=== PATIENT | female | born 1995 | race Caucasian/White ===

== ENCOUNTER 2018-06-16 11:39 | Emergency (ER) | payer OTHER, SELFPAY ==
[2018-06-16 11:51] VITALS: BP 129/74; PULSE 87; RESP 20; TEMP 37.5; O2SAT 100; BMI 19.1
--- NOTE | 2018-06-16 12:10 | ED.ABDPAIN ---
HPI - Abdominal Pain General Chief Complaint: Abdominal Pain Stated Complaint: PELVIC PAIN Time Seen by Provider: 06/16/18 12:10 Source: patient Mode of arrival: ambulatory Limitations: no limitations History of Present Illness HPI narrative: Otherwise healthy 22-year-old female here for evaluation of right upper quadrant abdominal pain and also lower abdominal pain. Patient states that it has been off and on for the past month and a half. She has seen a provider the walk-in clinic and she reports that she has had an ultrasound of her pelvis and also her ovaries which were reported as normal. She states the pain is off and on. Does not seem to related to her menstrual cycle. She states she is happy with her menstrual cycle right now. Is not on control because she and her are trying to get . She does have concern for endometriosis. No prior abdominal surgeries. No dysuria. No change of bowel habits. Has not tried anything for this prior to arrival. Related Data Allergies Allergy/AdvReac Type Severity Reaction Status Date / Time Penicillins Allergy Verified 06/16/18 12:35 Review of Systems Constitutional Denies chills, Denies fever(s) and Denies headache(s) ENT Ears, Nose, Mouth, and Throat: Denies dizziness and Denies headache(s) Cardiovascular Denies chest pain, Denies syncope and Denies dyspnea Respiratory Denies dyspnea Gastrointestinal Gastrointestinal: Reports abdominal pain, Denies change in stool character, Denies constipation, Denies diarrhea, Denies nausea and Denies vomiting Genitourinary Denies dysuria and Denies flank pain Musculoskeletal Denies myalgias and Denies arthralgias Integumentary/Breasts Denies lesions and Denies rash Neurologic Denies dizziness, Denies syncope and Denies headache(s) Hematologic/Lymphatic Denies easy bleeding and Denies easy bruising [facility] Medical History Healthy adult (Acute) Surgical History No history of previous surgery (Acute) Social History Smoking Status: Never smoker Exam Initial Vital Signs Initial Vital Signs: Vital Signs Temperature 99.5 F 06/16/18 11:51 Pulse Rate 87 06/16/18 11:51 Respiratory Rate 20 06/16/18 11:51 Blood Pressure 129/74 H 06/16/18 11:51 Pulse Oximetry 100 06/16/18 11:51 Const General: cooperative, healthy appearing, comfortable, well developed, well groomed and No acute distress Orientation: alert, awake and oriented x3 HENMT Head: normal to inspection and normocephalic Resp Effort & Inspection: normal respiratory effort Auscultation: clear to auscultation bilaterally Cardio Rate: regular rate Rhythm: regular rhythm GI Inspection: non-distended Palpation: soft, No firm, No guarding and tender (Right upper quadrant) Back/Spine/Pelvis Back: No CVA tenderness Skin Lesions: lesions noted Rashes: rash noted Neuro General: alert, awake and oriented x3 Cognition: normal cognition Speech: speech normal Gait: normal gait Motor: muscle tone normal throughout Extrem General: normal to inspection and capillary refill normal Psych Appearance: grossly normal and well kempt Course Orders Ordered: ED Orders 06/16/18 12:30 US abdomen complete Stat 06/16/18 12:53 Complete Blood Count AUTO DIFF Stat Comprehensive Metabolic Panel Stat Lipase Stat Vital Signs - 8 hr 06/16/18 11:51 06/16/18 13:58 Temperature 99.5 F Pulse Rate 87 82 Respiratory Rate 20 14 Blood Pressure 129/74 H Blood Pressure [Left Arm] 105/66 Pulse Oximetry 100 100 MDM - Abdominal Pain Lab Data Attestation: I reviewed the patient's lab results. Result diagrams: 06/16/18 12:53 06/16/18 12:53 Lab Results 06/16/18 06/16/18 Range/Units 12:53 12:53 WBC 9.2 (4.5-11.0) X10^3/uL RBC 3.98 L (4.0-5.2) X10^6/uL Hgb 12.4 (12.0-16.0) g/dL Hct 36.5 (36-46) % MCV 91.9 (80-100) fL MCH 31.1 (26-34) PG MCHC 33.9 (30-36) % RDW 12.6 (11.6-14.8) % Plt Count 340 (150-400) X10^3/uL Neut % (Auto) 78.8 H (50-75) % Lymph % (Auto) 16.1 L (25-40) % [place] % (Auto) 4.7 (3-14) % Eos % (Auto) 0.1 L (2-4) % Baso % (Auto) 0.3 (0-2) % Neut # (Auto) 7200 H (7305-3231) /uL Sodium 141 (137-145) mmol/L Potassium 3.7 (3.4-5.1) mmol/L Chloride 102 (98-107) mmol/L Carbon Dioxide 24 (22-32) mmol/L BUN 8 (7-17) mg/dL Creatinine 0.60 (0.52-1.04) mg/dL Estimated GFR > 60.0 (>60) mL/min BUN/Creatinine Ratio 13.3 (6-22) Glucose 98 (70-100) mg/dL Calcium 9.6 (8.4-10.2) mg/dL Total Bilirubin 1.9 H (0.2-1.3) mg/dL AST 22 (14-36) IU/L ALT 22 (9-52) IU/L Alkaline Phosphatase 38 (38-126) U/L Total Protein 7.9 (6.3-8.2) g/dL Albumin 4.8 (3.5-5.0) g/dL Globulin 3.1 (1.7-4.1) g/dL Albumin/Globulin Ratio 1.5 (1.0-2.8) Lipase 51 (23-300) U/L Point of care testing: Point of Care Testing Test Results Negative Urine Dip Bedside Urine Glucose Negative Bedside Urine Bilirubin - Negative Bedside Urine Ketone +/- 5 Urine Specific Old[place] 1.015 Bedside Urine Occult Blood - Negative Bedside Urine pH 7 Bedside Urine Protein - Negative Bedside Urine Urobilinogen - Negative Bedside Urine Nitrite - Negative Bedside Urine Leukocytes - Negative Esterase Imaging Data US - abdomen: Radiologist's impression: [address] [address] Ultrasound Report Signed Patient: KAYLIN FAUSTIN EMR#: [id number] : 1995Acct:[id number] Age/Sex: 22 / FDate of Service: 06/16/18 Loc: ED Accession Number: [id number] Procedure: US abdomen complete Ordering Provider: Luis Alberto Mcnair D.O. PROCEDURE: US ABDOMEN COMPLETE INDICATIONS: RIGHT UPPER QUADRANT PAIN TECHNIQUE: Real-time scanning was performed of the abdominal and retroperitoneal organs, with image documentation. COMPARISON: None. FINDINGS: Liver: Liver is normal in size and homogeneous in echotexture. Gallbladder: The gallbladder is normal in size without gallbladder wall thickening, pericholecystic fluid, or cholelithiasis. Biliary ducts: Intrahepatic bile ducts are non-dilated. Extrahepatic bile duct caliber measures 3 mm. Normal is 6-7 mm or less in diameter, or 10 mm or less post-cholecystectomy. Pancreas: Visualized portions of the pancreas are sonographically normal. Spleen: Spleen is normal in size and homogeneous in echotexture. Kidneys: Kidneys are normal in size and echotexture. Right kidney measures 10.8 cm long; left kidney measures 10.8 cm long. No hydronephrosis or shadowing nephrolithiasis. No solid masses. Aorta: Visualized aorta is normal in caliber at less than 3 cm. Iliacs: Proximal common iliac arteries are normal in caliber at less than 2.5 cm. IVC: Intrahepatic inferior vena cava is patent. Miscellaneous: No free abdominal fluid. IMPRESSION: 1. Unremarkable abdominal ultrasound. No acute findings are evident. 2. No cholelithiasis. 3. No hydronephrosis. Dictated by: Silverio Greer M.D. on 06/16/2018 at 12:22 Approved by: Silverio Greer M.D. on 06/16/2018 at 12:23 MDM Narrative Medical decision making narrative: Patient with a benign abdominal exam. Labs here unremarkable. No signs of gallbladder pathology. Urine unremarkable. test unremarkable. Has had off and on pain for the past 7 weeks. I feel that this is unlikely appendicitis, small-bowel obstruction or other intra-abdominal surgical pathology. Patient does have a follow-up with a urologist later today and also a laundry assistant provider in the next couple days to evaluate this pain that she has been having. She was instructed to keep these appointments. No indication for antibiotics. Will hold on further workup for now. Patient was given return precautions. She expressed understanding and agreement with plan Discharge Plan Departure Patient Disposition: Home Clinical Impression: Abdominal pain Discharge Date/Time: 06/16/18 14:14 Interventions: ED Discharge Assessment Last Done: 06/16/18 14:13 Instructions: DI for Abdominal Pain-Adult Activity Restrictions/Additional Instructions: Recommend that you keep all of your scheduled medical appointments to continue the workup of this pain that you have been having. Year gallbladder was unremarkable today. No surgical issue was found. Return to the emergency department for any new or worsening symptoms
--- NOTE | 2018-06-16 12:30 | DI.US.S_ITS ---
PROCEDURE: US ABDOMEN COMPLETE INDICATIONS: RIGHT UPPER QUADRANT PAIN TECHNIQUE: Real-time scanning was performed of the abdominal and retroperitoneal organs, with image documentation. COMPARISON: None. FINDINGS: Liver: Liver is normal in size and homogeneous in echotexture. Gallbladder: The gallbladder is normal in size without gallbladder wall thickening, pericholecystic fluid, or cholelithiasis. Biliary ducts: Intrahepatic bile ducts are non-dilated. Extrahepatic bile duct caliber measures 3 mm. Normal is 6-7 mm or less in diameter, or 10 mm or less post-cholecystectomy. Pancreas: Visualized portions of the pancreas are sonographically normal. Spleen: Spleen is normal in size and homogeneous in echotexture. Kidneys: Kidneys are normal in size and echotexture. Right kidney measures 10.8 cm long; left kidney measures 10.8 cm long. No hydronephrosis or shadowing nephrolithiasis. No solid masses. Aorta: Visualized aorta is normal in caliber at less than 3 cm. Iliacs: Proximal common iliac arteries are normal in caliber at less than 2.5 cm. IVC: Intrahepatic inferior vena cava is patent. Miscellaneous: No free abdominal fluid. IMPRESSION: 1. Unremarkable abdominal ultrasound. No acute findings are evident. 2. No cholelithiasis. 3. No hydronephrosis. Dictated by: Silverio Greer M.D. on 06/16/2018 at 12:22 Approved by: Silverio Greer M.D. on 06/16/2018 at 12:23
[2018-06-16 13:04] LABS: Add Manual Diff / Slide Review NO; Basophils Percent Auto 0.3 % (0-2); Eosinophils Percent Auto 0.1 % (2-4); Hematocrit 36.5 % (36-46); Hemoglobin 12.4 g/dL (12.0-16.0); Lymphocytes Percent Auto 16.1 % (25-40); Mean Corpuscular HGB Conc 33.9 % (30-36); Mean Corpuscular Hemoglobin 31.1 PG (26-34); Mean Corpuscular Volume 91.9 fL (80-100); Monocytes Percent Auto 4.7 % (3-14); Neutrophils Absolute Auto 7200 /uL (3000-5900); Neutrophils Percent Auto 78.8 % (50-75); Platelet Count 340 X10^3/uL (150-400); Red Blood Cell Count 3.98 X10^6/uL (4.0-5.2); Red Cell Distribution Width 12.6 % (11.6-14.8); White Blood Cell Count 9.2 X10^3/uL (4.5-11.0)
[2018-06-16 13:15] LABS: Alanine Aminotransferase 22 IU/L (9-52); Albumin 4.8 g/dL (3.5-5.0); Albumin Globulin Ratio 1.5 (1.0-2.8); Alkaline Phosphatase 38 U/L (38-126); Aspartate Aminotransferase 22 IU/L (14-36); BUN Creatinine Ratio 13.3 (6-22); Bilirubin Total 1.9 mg/dL (0.2-1.3); Blood Urea Nitrogen 8 mg/dL (7-17); Calcium 9.6 mg/dL (8.4-10.2); Carbon Dioxide 24 mmol/L (22-32); Chloride 102 mmol/L (98-107); Estimated Glomerular Filt Rate > 60.0 mL/min (>60); Globulin 3.1 g/dL (1.7-4.1); Glucose 98 mg/dL (70-100); HEMOLYSIS < 15 (0-50); Lipase 51 U/L (23-300); Potassium 3.7 mmol/L (3.4-5.1); Sodium 141 mmol/L (137-145); Total Protein 7.9 g/dL (6.3-8.2)
[2018-06-16 13:58] VITALS: BP 105/66; PULSE 82; RESP 14; O2SAT 100
== END 2018-06-16 14:14 | disposition home or self-care (01) ==
PROVIDERS: Emergency Provider Emergency Medicine
DX: R10.9 Unspecified abdominal pain (principal)
CPT/HCPCS: 36415; 76700; 80053; 81003; 81025; 83690; 85025; 99282; 99284

== ENCOUNTER → 2019-01-19 14:34 | Outpatient (CLI) | payer OTHER, SELFPAY ==
[2019-01-19 14:59] LABS: Influenza A and B by PCR Rapid Negative (Negative)
== END ==
PROVIDERS: Visit Provider Physician Assistant
DX: R68.89 Other general symptoms and signs (principal)
CPT/HCPCS: 87400

== ENCOUNTER → 2019-03-29 09:00 | Outpatient (CLI) | payer OTHER, SELFPAY ==
--- NOTE | 2019-03-29 09:01 | DI.US.S_ITS ---
PROCEDURE: US OB <= 14 WEEKS FETUS INDICATIONS: DATING AND VIABILITY OUTSIDE/PRIOR DATING DATA: Last menstrual period (LMP): 02/05/19. LMP-based estimated date of delivery (ASHWINI): 11/12/19. First dating scan (date and location): 03/29/19. Estimated date of delivery (ASHWINI) from first dating scan: 11/13/18. TECHNIQUE: Real-time scanning was performed of the fetus and maternal pelvic organs, with image documentation. Endovaginal scanning was also performed to better visualize the fetus and maternal ovaries. COMPARISON: None. FINDINGS: Embryo: Abanda-rump length measures 1.1 cm corresponding to 7 weeks 2 days. Embryonic heart rate measured at 155 beats per minute. Measurement variability in dating: +/- 4 weeks by LMP, +/- 7 days by mean sac diameter (use before 6 weeks gestation if crown-rump length not able to be measured), +/- 5 days by crown-rump length (up to 8 weeks 6 days gestation), +/- 7 days by crown-rump length (up to 13 weeks 6 days gestation). Maternal organs: Ovaries within normal limits, with right corpus luteal cyst. Limited images through the kidneys demonstrate no hydronephrosis. IMPRESSION: Suddenly today single living IUP. Dictated by: Kenneth MARTINEZ Interpreted: India Mccormick MD on 03/29/2019 at 9:55 Approved by: India Mccormick M.D. on 03/29/2019 at 14:52
== END ==
PROVIDERS: Visit Provider Obstetrics & Gynecology
DX: Z34.91 Encounter for supervision of normal pregnancy, unspecified, first trimester (principal); Z3A.01 Less than 8 weeks gestation of pregnancy
CPT/HCPCS: 76801

== ENCOUNTER → 2019-04-26 15:21 | Outpatient (CLI) | payer OTHER, SELFPAY ==
[2019-04-26 16:35] LABS: Add Manual Diff / Slide Review NO; Basophils Absolute Auto 100 /uL (0-100); Basophils Percent Auto 0.4 % (0-2); Eosinophils Absolute Auto 100 /uL (0-450); Eosinophils Percent Auto 0.4 % (2-4); Hematocrit 35.8 % (36-46); Hemoglobin 11.9 g/dL (12.0-16.0); Lymphocytes Absolute Auto 1700 /uL (1100-4500); Lymphocytes Percent Auto 12.7 % (25-40); Mean Corpuscular HGB Conc 33.3 % (30-36); Mean Corpuscular Hemoglobin 31.2 PG (26-34); Monocytes Absolute Auto 700 /uL (0-900); Monocytes Percent Auto 5.1 % (3-14); Neutrophils Absolute Auto 10800 /uL (1500-7000); Neutrophils Percent Auto 81.4 % (50-75); Platelet Count 373 X10^3/uL (150-400); Red Blood Cell Count 3.81 X10^6/uL (4.0-5.2); Red Cell Distribution Width 12.6 % (11.6-14.8); White Blood Cell Count 13.2 X10^3/uL (4.5-11.0)
[2019-04-26 17:59] LABS: Hepatitis B Surface Antigen NEGATIVE s/c (NEGATIVE); Rubella Antibody IgG 72.9 IU/mL (>15)
[2019-04-26 18:16] LABS: HIV 1 and 2 Antibody NEGATIVE (NEGATIVE); Hep C Virus Ab w/Reflex Quant NEGATIVE s/c (NEGATIVE)
[2019-04-26 18:21] LABS: Appearance Urine UA CLEAR; Bilirubin Urine UA NEGATIVE (NEGATIVE); Color Urine UA YELLOW; Glucose Urine UA NEGATIVE (Negative); Ketones Urine UA NEGATIVE (NEGATIVE); Leukocyte Esterase Urine UA NEGATIVE (NEGATIVE); Nitrite Urine UA NEGATIVE (Negative); Occult Blood Urine UA NEGATIVE (Negative); Protein Urine UA NEGATIVE (Negative); Specific Gravity Urine UA 1.015 (1.000-1.035); Urobilinogen Urine UA 0.2 E.U./dL (0.2)
[2019-05-01 06:41] LABS: RPR Screen Nonreactive (Nonreactive)
== END ==
PROVIDERS: Visit Provider Obstetrics & Gynecology
DX: Z34.91 Encounter for supervision of normal pregnancy, unspecified, first trimester (principal)
CPT/HCPCS: 36415; 80055; 81003; 86703; 86787; 86803; 86850; 86900; 86901; 87086

== ENCOUNTER → 2019-07-05 08:58 | Outpatient (CLI) | payer OTHER, SELFPAY ==
--- NOTE | 2019-07-05 09:00 | DI.US.S_ITS ---
PROCEDURE: US OB >= 14 WEEKS FETUS INDICATIONS: ANATOMY OUTSIDE/PRIOR DATING DATA: Last menstrual period (LMP): 02/05/19. LMP-based estimated date of delivery (ASHWINI): 11/12/19. First dating scan (date and location): 03/29/19. Estimated date of delivery (ASHWINI) from first dating scan: 11/13/18. TECHNIQUE: Real-time scanning was performed of the fetus, with image documentation and biometric measurements. Endovaginal scanning: Not performed COMPARISON: None. FINDINGS: General: A single living intrauterine gestation is present. Presentation: Vertex. Placenta: Placental position is posterior, without previa. Amniotic fluid index: 14.5 cm cm, normal range is 5-24 cm. largest vertical fluid pocket measures 4.4 cm heart rate: 143 beats per minute. Maternal cervical canal: 3.3 cm long. Normal lower limit is 2.5 cm. biometrics: Biparietal diameter: 5.2 cm, correlating with 21 weeks and 5 days Head circumference: 19.2 cm, correlating with 21 weeks and 3 days Abdominal circumference: 16.6 cm, correlating with 21 weeks and 5 days Femur length: 3.6 cm, correlating with 21 weeks and 3 days Composite gestational age from present scan: 21 weeks and 4 days Estimated weight and percentile: 431 g which correlates with the 52nd percentile Measurement variability for biometric dating: +/- 7 days from 14 weeks to 15 weeks 6 days gestation, +/- 10 days from 16 weeks to 21 weeks 6 days gestation, +/- 2 weeks from 22 weeks to 27 weeks 6 days gestation, +/- 3 weeks for 28 weeks gestation or later. weight reference: 4500 g or EFW >90/95% is considered macrosomia or large for gestational age. EFW <10% is small for gestational age. EFW 5% or less is considered intra-uterine growth restriction. Anatomic survey: Neuro: Ventricles are non-dilated at less than 10 mm. Cisterna magna is normal at 3-11 mm. Cerebellum is normal in size and morphology. Nuchal skin fold: Normal at less than 6 mm between 14-21 weeks gestational age. Face: Limited visualization of the nose and lips, facial profile secondary to lie throughout the duration of the study. The imaged portions, they appear unremarkable. Spine: No evidence for spina bifida. Heart: 4-chambered heart is present, with normal ventricular outflow tracts. Diaphragm: Diaphragm is intact. Stomach: Left-sided stomach is present. Kidneys: No hydronephrosis. Normal is less than 5 mm in 2nd trimester, less than 7 mm in 3rd trimester. Cord: 3-vessel cord has orthotopic insertion. Bladder: Normal in size. Extremities: All 4 extremities identified. IMPRESSION: 1. Single living intrauterine gestation with an estimated sonographic gestational age of approximately 21 weeks and 4 days versus 21 weeks and 2 days by last menstrual period. Gestational age remains concordant. Expected interval growth has occurred. Estimated weight of 431 g which placed the fetus within the 52nd percentile. 2. Limited visualization of the face secondary to presentation throughout the duration of the examination. Of the imaged portions, they appear unremarkable. Otherwise, unremarkable second trimester anatomic survey survey. Dictated by: Flash Guerrero M.D. on 07/05/2019 at 18:16 Approved by: Flash Guerrero M.D. on 07/05/2019 at 18:23
== END ==
PROVIDERS: Visit Provider Obstetrics & Gynecology
DX: Z34.02 Encounter for supervision of normal first pregnancy, second trimester (principal); Z3A.21 21 weeks gestation of pregnancy
CPT/HCPCS: 76811

== ENCOUNTER → 2019-07-26 12:54 | Outpatient (CLI) | payer OTHER, SELFPAY ==
[2019-07-26 13:14] LABS: Appearance Urine UA CLOUDY; Bilirubin Urine UA NEGATIVE (NEGATIVE); Color Urine UA YELLOW; Glucose Urine UA NEGATIVE (Negative); Ketones Urine UA NEGATIVE (NEGATIVE); Leukocyte Esterase Urine UA NEGATIVE (NEGATIVE); Nitrite Urine UA NEGATIVE (Negative); Occult Blood Urine UA 2+ (Negative); Protein Urine UA NEGATIVE (Negative); Urobilinogen Urine UA 0.2 E.U./dL (0.2)
[2019-07-26 13:23] LABS: pH Urine UA 7.5 (4.5-8.0)
[2019-07-26 13:28] LABS: Amorphous Sediment Urine 1+; Bacteria Urine Moderate (10-30); Culture Indicated Urine Specimen Cultured; RBC Urine 5-10/HPF (0-5/HPF); Squamous Epithelial Cell Urine 0-1 /HPF (0-5/HPF); WBC Urine 1-5/HPF (0-5/HPF)
== END ==
PROVIDERS: Visit Provider Obstetrics & Gynecology
DX: R31.9 Hematuria, unspecified (principal); Z3A.24 24 weeks gestation of pregnancy
CPT/HCPCS: 81001; 87086

== ENCOUNTER → 2019-08-10 12:19 | Outpatient (CLI) | payer OTHER, SELFPAY ==
[2019-08-10 14:37] LABS: Hemoglobin 9.6 g/dL (12.0-16.0)
[2019-08-10 15:52] LABS: GTT (PREG) 1 Hour PP 50gm Dose 110 mg/dL (76-139)
== END ==
PROVIDERS: Visit Provider Obstetrics & Gynecology
DX: Z34.82 Encounter for supervision of other normal pregnancy, second trimester (principal); Z3A.26 26 weeks gestation of pregnancy
CPT/HCPCS: 36415; 82950; 85014; 85018

== ENCOUNTER → 2019-08-20 12:02 | Outpatient (CLI) | payer OTHER, SELFPAY ==
[2019-08-20 12:08] LABS: RBC Urine None Seen (0-5/HPF)
[2019-08-20 12:18] LABS: Appearance Urine UA CLEAR; Bilirubin Urine UA NEGATIVE (NEGATIVE); Color Urine UA YELLOW; Glucose Urine UA NEGATIVE (Negative); Ketones Urine UA NEGATIVE (NEGATIVE); Leukocyte Esterase Urine UA NEGATIVE (NEGATIVE); Nitrite Urine UA NEGATIVE (Negative); Occult Blood Urine UA NEGATIVE (Negative); Protein Urine UA NEGATIVE (Negative); Specific Gravity Urine UA <=1.005 (1.000-1.035); Urobilinogen Urine UA 0.2 E.U./dL (0.2)
[2019-08-20 12:23] LABS: Bacteria Urine Few (2-10); Culture Indicated Urine Specimen Cultured; Squamous Epithelial Cell Urine 0-1 /HPF (0-5/HPF); WBC Urine 1-5/HPF (0-5/HPF)
== END ==
PROVIDERS: Family Provider Obstetrics & Gynecology; PCP Family Medicine; Visit Provider Obstetrics & Gynecology
DX: O23.43 Unspecified infection of urinary tract in pregnancy, third trimester (principal)
CPT/HCPCS: 81001; 87086

== ENCOUNTER → 2019-10-04 08:44 | Outpatient (CLI) | payer OTHER, SELFPAY ==
[2019-10-05 10:40] LABS: Strep Grp B PCR NEG for Grp B Strep
== END ==
PROVIDERS: Family Provider Obstetrics & Gynecology; PCP Family Medicine; Visit Provider Obstetrics & Gynecology
DX: Z34.03 Encounter for supervision of normal first pregnancy, third trimester (principal)
CPT/HCPCS: 87653

== ENCOUNTER → 2020-12-10 08:32 | Outpatient (CLI) | payer OTHER, SELFPAY ==
[2020-12-10 08:57] LABS: Add Manual Diff / Slide Review NO; Appearance Urine UA CLEAR; Basophils Absolute Auto 100 /uL (0-100); Basophils Percent Auto 0.6 % (0-2); Bilirubin Urine UA NEGATIVE (NEGATIVE); Color Urine UA YELLOW; Eosinophils Absolute Auto 0 /uL (0-450); Eosinophils Percent Auto 0.3 % (2-4); Glucose Urine UA NEGATIVE (Negative); Hematocrit 35.7 % (36-46); Ketones Urine UA NEGATIVE (NEGATIVE); Leukocyte Esterase Urine UA NEGATIVE (NEGATIVE); Lymphocytes Absolute Auto 1400 /uL (1100-4500); Lymphocytes Percent Auto 14.6 % (25-40); Mean Corpuscular HGB Conc 33.6 % (30-36); Mean Corpuscular Volume 92.3 fL (80-100); Monocytes Absolute Auto 500 /uL (0-900); Neutrophils Absolute Auto 7400 /uL (1500-7000); Neutrophils Percent Auto 79.5 % (50-75); Nitrite Urine UA NEGATIVE (Negative); Occult Blood Urine UA NEGATIVE (Negative); Platelet Count 358 X10^3/uL (150-400); Protein Urine UA NEGATIVE (Negative); Red Blood Cell Count 3.87 X10^6/uL (4.0-5.2); Red Cell Distribution Width 12.4 % (11.6-14.8); Urobilinogen Urine UA 0.2 E.U./dL (0.2); White Blood Cell Count 9.3 X10^3/uL (4.5-11.0)
[2020-12-10 10:08] LABS: Hepatitis B Surface Antigen NEGATIVE s/c (NEGATIVE); Rubella Antibody IgG 33.7 IU/mL (>15)
[2020-12-10 10:28] LABS: HIV 1 & 2 Ab/Ag 4th Gen Combo NEGATIVE (NEGATIVE); Hep C Virus Ab w/Reflex Quant NEGATIVE s/c (NEGATIVE)
[2020-12-11 08:09] LABS: RPR Screen Non Reactive (Non Reactive)
[2020-12-11 08:44] LABS: Varicella IgG Antibody 425 index (Immune >165)
== END ==
PROVIDERS: Family Provider Obstetrics & Gynecology; PCP Family Medicine; Referring Provider Obstetrics & Gynecology; Visit Provider Obstetrics & Gynecology
DX: Z34.81 Encounter for supervision of other normal pregnancy, first trimester (principal)
CPT/HCPCS: 36415; 80055; 81003; 86787; 86803; 86850; 86900; 86901; 87077; 87086; 87147; 87389

== ENCOUNTER → 2021-01-06 08:17 | Outpatient (CLI) | payer OTHER, SELFPAY ==
[2021-01-06 15:11] LABS: Urine N gonorrhoeae NOT DETECTED
[2021-01-06 15:48] LABS: Urine Chlamydia NOT DETECTED
== END ==
PROVIDERS: Family Provider Obstetrics & Gynecology; PCP Family Medicine; Visit Provider Obstetrics & Gynecology
DX: Z34.81 Encounter for supervision of other normal pregnancy, first trimester (principal); Z3A.12 12 weeks gestation of pregnancy
CPT/HCPCS: 87491; 87591

== ENCOUNTER → 2021-03-03 07:35 | Outpatient (CLI) | payer OTHER, SELFPAY ==
--- NOTE | 2021-03-03 07:36 | DI.US.S_ITS ---
PROCEDURE: US OB >= 14 WEEKS FETUS INDICATIONS: ANATOMY OUTSIDE/PRIOR DATING DATA: Last menstrual period (LMP): 10/09/2020. LMP-based estimated date of delivery (ASHWINI): 07/16/2021. First dating scan (date and location): 03/03/2021. Estimated date of delivery (ASHWINI) from first dating scan: 07/17/2021. TECHNIQUE: Real-time scanning was performed of the fetus, with image documentation and biometric measurements. Endovaginal scanning: None COMPARISON: [facility], , OB >= 14 WEEKS FETUS, 01/29/2021, 9:00. FINDINGS: General: A single living intrauterine gestation is present. Presentation: Breech. Placenta: Placental position is posterior, without previa. Amniotic fluid index: 12.5 cm, normal range is 5-24 cm. heart rate: 158 bpm. Maternal cervical canal: 3.1 cm long. Normal lower limit is 2.5 cm. biometrics: Biparietal diameter: 20 weeks 2 days Head circumference: 20 weeks 2 days Abdominal circumference: 20 weeks 5 days Femur length: 20 weeks 6 days Estimated gestational age from initial scan: not applicable. Composite gestational age from present scan: 20 weeks 4 days Estimated weight and percentile: 371 g; 44th percentile Measurement variability for biometric dating: +/- 7 days from 14 weeks to 15 weeks 6 days gestation, +/- 10 days from 16 weeks to 21 weeks 6 days gestation, +/- 2 weeks from 22 weeks to 27 weeks 6 days gestation, +/- 3 weeks for 28 weeks gestation or later. weight reference: 4500 g or EFW >90/95% is considered macrosomia or large for gestational age. EFW <10% is small for gestational age. EFW 5% or less is considered intra-uterine growth restriction. Anatomic survey: Neuro: Ventricles are non-dilated at less than 10 mm. Cisterna magna is normal at 3-11 mm. Cerebellum is normal in size and morphology. Nuchal skin fold: Normal at less than 6 mm between 14-21 weeks gestational age. Face: Nose and lips, facial profile are normal. Spine: Suboptimally visualized. Heart: 4-chambered heart is present, with normal ventricular outflow tracts. Diaphragm: Diaphragm is intact. Stomach: Left-sided stomach is present. Kidneys: No hydronephrosis. Normal is less than 5 mm in 2nd trimester, less than 7 mm in 3rd trimester. Cord: 3-vessel cord has orthotopic insertion. Bladder: Normal in size. Extremities: All 4 extremities identified. IMPRESSION: 1. Single living IUP with mean composite gestational age of 20 weeks 4 days corresponding to ultrasound ASHWINI of 07/17/2021. 2. spine not well visualized; otherwise normal anatomy. Follow-up recommended. 3. Of note, debris noted within the maternal urinary bladder. This could be seen in concentrated urine or cystitis. Recommend clinical correlation to exclude cystitis. Dictated by: Kenneth MARTINEZ Interpreted: Wei Del Toro MD on 03/04/2021 at 9:29 Transcribed by: HIPOLITO on 03/04/2021 at 9:32 Approved by: Wei Del Toro M.D. on 03/04/2021 at 12:54
== END ==
PROVIDERS: Family Provider Obstetrics & Gynecology; PCP Family Medicine; Referring Provider Obstetrics & Gynecology; Visit Provider Obstetrics & Gynecology
DX: Z34.82 Encounter for supervision of other normal pregnancy, second trimester (principal); Z3A.20 20 weeks gestation of pregnancy
CPT/HCPCS: 76811

== ENCOUNTER → 2021-06-16 09:46 | Outpatient (CLI) | payer OTHER, SELFPAY ==
[2021-06-17 10:55] LABS: Strep Grp B PCR POS for Grp B Strep
== END ==
PROVIDERS: Family Provider Obstetrics & Gynecology; PCP Family Medicine; Visit Provider Obstetrics & Gynecology
DX: Z34.83 Encounter for supervision of other normal pregnancy, third trimester (principal); Z3A.35 35 weeks gestation of pregnancy
CPT/HCPCS: 87186; 87653

== ENCOUNTER 2021-07-14 06:47 | Inpatient (IN) | payer OTHER, SELFPAY ==
[2021-07-14] MEDS: LACTATED RINGERS 1,000 ML 100 ML IV (08:08)
[2021-07-14] MEDS: OXYTOCIN PREMIX 30 UNIT/500 ML PLAST..BAG IV (08:09)
[2021-07-14] MEDS: PENICILLIN G POTASSIUM 5,000,000 UNIT in DEXTROSE 5% IN WATER 250 ML IV (08:09)
[2021-07-14 08:54] LABS: Basophils Absolute Auto 100 /uL (0-100); Basophils Percent Auto 0.5 % (0-2); Eosinophils Absolute Auto 100 /uL (0-450); Eosinophils Percent Auto 0.4 % (2-4); Hematocrit 34.2 % (36-46); Hemoglobin 11.3 g/dL (12.0-16.0); Lymphocytes Absolute Auto 1700 /uL (1100-4500); Lymphocytes Percent Auto 14.5 % (25-40); Mean Corpuscular Volume 94.2 fL (80-100); Monocytes Absolute Auto 700 /uL (0-900); Monocytes Percent Auto 6.3 % (3-14); Neutrophils Absolute Auto 9100 /uL (1500-7000); Neutrophils Percent Auto 78.3 % (50-75); Red Blood Cell Count 3.63 X10^6/uL (4.0-5.2); Red Cell Distribution Width 13.3 % (11.6-14.8); White Blood Cell Count 11.6 X10^3/uL (4.5-11.0)
[2021-07-14 08:56] LABS: Add Manual Diff / Slide Review SLIDE REVIEW
[2021-07-14 09:20] LABS: RBC Morphology Normal Morphology
[2021-07-14 09:21] LABS: Platelet Count 323 X10^3/uL (150-400)
[2021-07-14] MEDS: PENICILLIN G POTASSIUM 3,000,000 UNIT/50 ML FROZ.PIGGY 100 UNIT IV (12:02)
[2021-07-14 12:17] LABS: COVID19 - ADMIT (NP swab/PCR) Negative (Negative)
[2021-07-14 13:35] VITALS: BP 130/80
[2021-07-14] MEDS: OXYTOCIN 10 UNIT/ML VIAL IM (14:15)
[2021-07-14] MEDS: METHYLERGONOVINE 0.2 MG/ML VIAL IM (14:57)
[2021-07-14] MEDS: IBUPROFEN 600 MG TABLET PO ×2 (15:24→21:11)
--- NOTE | 2021-07-14 19:27 | PM.OBHP.1 ---
OB HPI Date/Time Date of admission: 07/14/21 Date Patient Seen: 07/14/21 Time Patient Seen: 07:35 History of Present Condition Chief complaint: : 2 Para: 1 Estimated Date of Delivery: 07/16/21 Estimated Gestational Age (weeks): 39+5 Narrative: Leatha Wang is a 26 year old female 2 para 1 at 39-,5/7 weeks gestation who presents for induction of labor due to history of rapid labor and distance from the hospital. Indications Indication for induction OB: maternal distance and history of rapid labor History of Present care: good care, initiated at week # (8), number of visits (11) and pounds weight gain (38 #) Dating criteria: LMP confirmed by 1st trimester US Ultrasounds: normal 1st trimester US and normal mid trimester US Obstetrical complications: none Medical complications: none Preadmission Labs Blood type: A (+) positive -: Antibody screen: negative, GBS status: positive, HBsAG: negative, HIV: negative and RPR/VDLR: negative -: Chlamydia screen: not detected and Gonorrhea screen: not detected -: Rubella: immune and Varicella: immune HCT: 34.2 HCAB: negative PAP: Normal Urine: Negative 1 hr GTT: 110 Prior (ies) History: 1 at 40+ weeks Evaluation Evaluation Baseline heart rate: 135 Variability: Moderate (11-25) monitor accelerations: Present Monitor Decelerations: Absent Status: Category l Cervical dilation (cm): 3 Cervical effacement (%): 80 station: 0 PFSH Medical History (Updated 12/03/20 @ 12:50 by Elsi Ibarra RN) Encounter for assisted reproductive fertility cycle (~2018) 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 Father Kidney stones Grandmother Heavy smoker COPD (chronic obstructive pulmonary disease) Grandfather No problems noted. Grandmother No problems noted. 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 jackson/evangelical: [employer] special jackson needs: No Smoking Status: Never smoker second hand exposure: No alcohol intake: former (pre- : occasional ) substance use type: does not use Meds Home Medications and Allergies Home Medications Medication Instructions Recorded Confirmed Type prenat.vits,isabella,qdu-snfa-pntxr 1 tab PO DAILY 04/26/19 07/14/21 History cholecalciferol (vitamin D3) 25 25 mcg PO DAILY 12/03/20 07/14/21 History mcg (1,000 unit) capsule magnesium 250 mg tablet 250 mg PO DAILY 12/03/20 07/14/21 History Allergies Allergy/AdvReac Type Severity Reaction Status Date / Time Penicillins AdvReac Hives Verified 07/10/21 08:56 Exam Vital Signs (past 8 hours): - 07/14/21 13:35 Blood Pressure 130/80 Narrative Exam Narrative: Generally: Patient is sitting up in bed, no acute distress Fundal height: 39 cm Estimated weight: 7-1/2 lb Extremities: 1+ DTRs, no edema Objective Labs Result Diagrams: 07/14/21 07:40 Labs: Laboratory Results - last 24 hr 07/14/21 07/14/21 07/14/21 07:40 07:40 10:47 WBC 11.6 H RBC 3.63 L Hgb 11.3 L Hct 34.2 L MCV 94.2 MCH 31.0 MCHC 33.0 RDW 13.3 Plt Count 323 Neut % (Auto) 78.3 H Lymph % (Auto) 14.5 L [place] % (Auto) 6.3 Eos % (Auto) 0.4 L Baso % (Auto) 0.5 Neut # (Auto) 9100 H Lymph # (Auto) 1700 [place] # (Auto) 700 Eos # (Auto) 100 Baso # (Auto) 100 RBC Morphology Normal morphology SARS-CoV-2 (PCR) Negative Blood Type A Positive Antibody Screen Negative Assessment and Plan Assessment and Plan Assessment and Plan narrative: Assessment: 26-year-old 2 para 1 at 39-,5/7 weeks gestation for induction of labor due to history of rapid labor and distance from hospital GBS positive Plan: Begin group B strep prophylaxis Artificial rupture of membranes once second dose of antibiotics given Expected management to spontaneous vaginal delivery Time Spent with Patient Total time spent with greater than 50% in coordination of care (as documented) at patient's floor/unit and/or counseling patient:: 15-24 minutes
--- NOTE | 2021-07-14 19:31 | PM.OBPNLAB ---
Date/Time Date Patient Seen: 07/14/21 Time Patient Seen: 12:30 Pain Control Pain control: tolerating well Pelvic Exam Dilation (cm): 4 Effacement (%): 80 station: 0 Amniotic membrane status: Intact Contractions Pitocin rate (mU/min): 8 Contraction frequency (min): 3 Contraction duration (min): 1 Contraction pattern: Regular Contraction intensity: Moderate Status status: Category l Heart Rate Baseline: 135 Monitor Accelerations: Present Monitor Decelerations: Absent Monitor Variability: Moderate Assessment and Plan Assessment: induction ongoing Plan: continuous present management Comments: Artificial rupture membranes with copious clear amniotic fluid
--- NOTE | 2021-07-14 19:33 | PM.OBPRVD ---
Events: Labor Induction Labor & Delivery Delivery date: 07/14/21 Intrapartal Events: None Cervical ripening method: none Induction method: per pitocin protocol Delivery augmentation: rupture of membranes Delivery monitor: external FHT and external uterine Route of delivery: Episiotomy description: None L&D Laceration Description: None Estimated blood loss (mL): 100 Anesthesia Type: None Complications: None Narrative: Patient complete and pushed for 3 minutes. At 2:07 p.m., a live female delivered spontaneously in the [facility] presentation. No nuchal cord. The remainder of the body delivered without difficulty and was placed on mom's abdomen. After the cord stopped pulsing, the cord was double clamped and cut. Cord bloods were obtained. Pitocin was given IM due to the IV coming out during pushing. Fundus was massaged to firm. The perineum and vagina were inspected and there were no lacerations. Apgars 8 at 1 minute and 9 at 5 minutes. Weight 7 lb 5.4 oz. . No analgesia. Mom and stable to recovery. Baby 1: Infant gender: Female Presentation: vertex Position: Left Occiput Anterior Placenta delivery description: Spontaneous Cord Vessel Description: 3 Vessels score (1 min): 8 score (5 min): 9 weight: 7 lb 5 oz Plan for aftercare: Routine care
[2021-07-15] MEDS: IBUPROFEN 600 MG TABLET PO ×3 (03:22→16:01)
[2021-07-15 06:55] LABS: Hematocrit 33.2 % (36-46); Hemoglobin 10.9 g/dL (12.0-16.0)
[2021-07-15] MEDS: PRENATAL VIT,CALC/IRON/FOLIC 1 TABLET 1 TAB PO (09:14)
[2021-07-15] MEDS: DOCUSATE 100 MG CAPSULE PO (09:14)
--- NOTE | 2021-07-20 17:38 | PM.OBDS.1 ---
Discharge Providers Provider Date of admission: 07/14/21 06:47 Discharge Date: 07/15/21 Primary care physician: Paul Peralta MD Consults: 07/15/21 14:43 Consult to Ex Assistant/Program Director Routine Comment: Discharge provider: Eva Juarez MD Summary Hospital Course Date Patient Seen: 07/15/21 Time Patient Seen: 07:30 Diagnoses: 39-,5/7 weeks gestation Induction of labor with Pitocin Artificial rupture of membrane Spontaneous vaginal delivery Hospital Course: Patient is a 26-year-old 2 para 2 who presented on July 14, 2021 for scheduled induction of labor with Pitocin. Pitocin was started. Artificial rupture membranes was performed. She progressed to complete dilation and had a spontaneous vaginal delivery. Her course was unremarkable and she was discharged home on day # 1. Peripartum Data Delivery Method: Natural Vaginal Laceration Description: None Episiotomy description: None Procedures: Pitocin induction of labor Spontaneous vaginal delivery Artificial rupture of member complications: none [place] 1: Gender: Female Disposition of : home Status at Discharge Cognitive/behavioral status at discharge: oriented Functional status at discharge: independent ambulation Overall status at discharge: patient is progressing back to baseline Time Spent with Patient Time attestation: Total time spent providing and/or coordinating discharge services: Time spent: Less than 30 minutes Objective Labs Result Diagrams: 07/15/21 06:39 Exam Narrative Exam Narrative: Generally: Patient is sitting up in bed, nursing , no acute distress Fundus: Firm at U -1 Extremities: Negative Homans, no edema Discharge Plan Discharge Plan Patient Disposition: Home Provider Discharge Comment: Call with fever, chills, or bleeding vaginally more than a pad an hour Ibuprofen 600 mg every 6 hours as needed for cramping Discharge orders & Medications Prescriptions: Continued cholecalciferol (vitamin D3) 25 mcg (1,000 unit) capsule 25 mcg PO DAILY RF: 0 magnesium 250 mg tablet 250 mg PO DAILY RF: 0 prenat.vits,isabella,xvp-ozvh-[id number] tablet 1 tab PO DAILY RF: 0 Follow up/Referrals: Eva Juarez MD [Family Provider] - 6 Weeks (Appointment with on Wednesday, August at 2:30 pm) Diet/Activity/Treatments Diet: Regular Activity: Nothing in the vagina for 6 weeks Skin/Wound/Dressing Care Report to your healthcare provider any signs of infection, such as:: chills, fever, increased pain and unusual drainage Visit Report/Discharge Packet Instructions: DI for Labor and Delivery, Vaginal Discharge Data Primary Care Provider: Paul Peralta
== END 2021-07-15 16:05 | disposition home or self-care (01) | DRG 807 ==
PROVIDERS: Admitting Provider Obstetrics & Gynecology; Family Provider Obstetrics & Gynecology; PCP Family Medicine; Referring Provider Obstetrics & Gynecology; Visit Provider Obstetrics & Gynecology
DX: O99.824 Streptococcus B carrier state complicating childbirth (principal); Z37.0 Single live birth; Z3A.39 39 weeks gestation of pregnancy; Z87.59 Personal history of other complications of pregnancy, childbirth and the puerperium
CPT/HCPCS: 36415; 59050; 59400; 85014; 85018; 85025; 86850; 86900; 86901; 87635; C9803; G0379; J2210; J2540; J2590